=== PATIENT | female | born 1975 | race Caucasian/White ===

== ENCOUNTER 2023-02-15 09:49 | Day surgery (SDC) | payer BC, OTHER ==
[~2023-02-15 09:49] MED LIST: Midazolam 1 MG/ML 2 ML SDV ONE; Propofol 200 MG/20 ML SDV ONE
[2023-02-15] MEDS ORDERED: Sodium Chloride 0.9% 10 ML Syringe FLUSH PRN (10:15)
[2023-02-15] MEDS: Lactated Ringers 1,000 ML IV SCH (10:18)
== END 2023-02-15 12:55 | disposition home or self-care (01) ==
LOC: LL.SDS 09:49
PROVIDERS: ATTEND Surgery
DX: Z12.11 Encounter for screening for malignant neoplasm of colon (principal); D12.5 Benign neoplasm of sigmoid colon; K57.30 Diverticulosis of large intestine without perforation or abscess without bleeding; D64.9 Anemia, unspecified; E66.01 Morbid (severe) obesity due to excess calories; Z68.35 Body mass index [BMI] 35.0-35.9, adult
CPT/HCPCS: 45385; J2250; J2704; J7120; 36415